=== PATIENT | female | born 1970 ===

== ENCOUNTER 2025-05-09 07:41 | Outpatient (CLI) | payer MEDICAID, SELFPAY ==
[2025-05-09 08:31] LABS: PCR FLU A POSITIVE PCR FLU A (Negative); PCR FLU B Negative PCR FLU B (Negative); SARS PCR* Negative SARS-CoV-2 (Negative)
== END 2025-05-09 07:42 | disposition home or self-care (01) ==
LOC: FRMREF 07:41
PROVIDERS: Visit Provider Nurse Practitioner Family
DX: R05.9 Cough, unspecified (principal); R68.83 Chills (without fever); R52 Pain, unspecified
CPT/HCPCS: 87636